=== PATIENT | female | born 1945 | race Caucasian/White ===

== ENCOUNTER 2017-01-23 14:08 | Outpatient (CLI) | payer MEDICARE, BC ==
--- NOTE | 2017-01-24 07:56 | MRI ---
MRI OF LUMBAR SPINE WITHOUT CONTRAST: Date: 01/23/17 INDICATION: Lumbar radicular pain. COMPARISON: None. FINDINGS: At L5-S1, there is advanced facet joint degenerative change. There is a broad based disc bulge. Ther e is mild bilateral neural foraminal narrowing. At L4-5, there is Grade I anterolisthesis. There is advanced facet joint degenerative change and bro ad based disc bulge inducing mild bilateral neural foraminal narrowing. At L3-4, there is a broad based bulge with facet joint degenerative change without appreciable centr al canal or neural foraminal narrowing. At L2-3, there is facet joint degenerative change and broad based bulge with mild bilateral neural f oraminal narrowing. At L1-2, there is a broad based bulge with facet joint degenerative change inducing mild bilateral n eural foraminal narrowing, right greater than left. At T12-L1, there is a broad based bulge with facet joint degenerative change inducing mild left neur al foraminal narrowing. Visualized retroperitoneum and paravertebral soft tissues appear within normal limits. IMPRESSION: Spondylosis of the lumbar spine, most advanced at L4-5 and L5-S1. POS: [facility]
== END 2017-01-23 14:09 | disposition home or self-care (01) ==
LOC: BURMRI 14:08
PROVIDERS: ATTEND Nurse Practitioner Family
DX: M54.16 Radiculopathy, lumbar region (principal); M47.817 Spondylosis without myelopathy or radiculopathy, lumbosacral region
CPT/HCPCS: 72148

== ENCOUNTER 2019-09-08 16:48 | Emergency (ER) | payer MEDICARE, MEDICAID ==
[2019-09-08 17:08] LABS: Bilirubin Small (Negative); Blood, Urine Large (Negative); Clarity Cloudy (Clear); Glucose, Urine (Dipstick) Negative (Negative); Leukocyte Moderate (Negative); Nitrite Negative (Negative); Protein, Urine (Dipstick) 100 mg/dL (Neg-Trace); Urobilinogen 0.2 mg/dL (Less than 2)
[2019-09-08 17:11] LABS: Bacteria/HPF 2+ HPF (None Seen); Oval Fat Bodies/HPF None Seen HPF (None Seen); RBC/HPF Greater than 50 HPF (0-3); Renal Epithelial None Seen HPF (None Seen); Sperm/HPF None Seen HPF (None Seen); Squamous Epithelial 0-3 HPF (0-3); Transitional Epithelial None Seen HPF (None Seen); Trichomonas/HPF None Seen HPF (None Seen); WBC/HPF Greater Than 50 HPF (0-3); Yeast-Budding None Seen HPF (None Seen); Yeast-Hyphae None Seen HPF (None Seen)
[2019-09-08 17:12] LABS: Broad Cast None Seen LPF (None Seen); Calcium Oxalate Crystals None Seen HPF (None Seen); Cellular Cast None Seen LPF (None Seen); Epithelial Cast None Seen LPF (None Seen); Fatty Cast None Seen LPF (None Seen); Mucous/LPF 1+ LPF (<2+); Other Casts None Seen LPF (None Seen); Red Blood Cell Cast None Seen LPF (None Seen); Triple Phosphate Crystal None Seen HPF (None Seen); Unclassified Crystals None Seen HPF (None Seen); Waxy Cast None Seen LPF (None Seen); White Blood Cell Cast None Seen LPF (None Seen)
[2019-09-08 17:39] LABS: #Basophils 0.1 thou/uL (0.0-0.2); #Monocytes 0.5 thou/uL (0.11-0.59); #Neutrophils 1.5 thou/uL (1.40-6.50); %Basophils 2.6 % (0.0-1.0); %Eosinophils 0.8 % (0.0-10.0); %Lymphocytes 32.4 % (21.0-51.0); %Monocytes 14.7 % (0.0-10.0); %Neutrophils 49.5 % (42.0-75.0); Hemoglobin 10.9 g/dL (12.0-16.0); Large Platelets SLIGHT; MDiff Complete? YES; Macrocytosis SLIGHT = 6-15 cells (100X) (0-5/hpf); Mean Corpuscular HGB CONC 31.4 g/dL (32.0-36.0); Mean Corpuscular Hemoglobin 34.5 pg (27.0-31.0); Mean Platelet Volume 9.1 fL (7.4-10.4); Platelet Count 117 thou/uL (130-400); RBC Distribution Width 14.5 % (11.5-14.5); Red Blood Cell (RBC) Count 3.16 mill/uL (4.20-5.40)
[2019-09-08] MEDS ORDERED: cefTRIAXone\\ROCEPHIN 1 GM VIAL ONE (17:45)
[2019-09-08] MEDS ORDERED: Lidocaine 1% PF 5 ML VIAL ONE (17:45)
== END 2019-09-08 17:54 | disposition home or self-care (01) ==
LOC: BURERS 16:48
DX: N39.0 Urinary tract infection, site not specified (principal); I10 Essential (primary) hypertension; Z79.899 Other long term (current) drug therapy
CPT/HCPCS: 81003; 81015; 85025; 87077; 87086; 87186; 96372; 99283; J0696; J2001

== ENCOUNTER 2020-04-25 14:35 | Emergency (ER) | payer MEDICARE, MEDICAID ==
[2020-04-25 15:33] LABS: Hemoglobin 9.6 g/dL (12.0-16.0); Mean Corpuscular HGB CONC 31.5 g/dL (32.0-36.0); Mean Corpuscular Hemoglobin 31.7 pg (27.0-31.0); Mean Platelet Volume 10.3 fL (7.4-10.4); Platelet Count 92 thou/uL (130-400); RBC Distribution Width 15.2 % (11.5-14.5); Red Blood Cell (RBC) Count 3.04 mill/uL (4.20-5.40); White Blood Cell (WBC) Count 2.2 thou/uL (4.8-10.8)
[2020-04-25 15:47] LABS: ALT (SGPT) 18 U/L (8-55); AST (SGOT) 27 U/L (5-34); Albumin 3.5 g/dL (3.4-4.8); Alkaline Phosphatase 62 U/L (40-110); Anion Gap 14 mmol/L (10-20); BUN (Urea Nitrogen) 11 mg/dL (9.8-20.1); Bilirubin, Total 0.5 mg/dL (0.2-1.2); Calc. Creatinine Clearance 0 mL/min (70-130); Calcium 8.2 mg/dL (7.8-10.44); Carbon Dioxide 26 mmol/L (23-31); Chloride 105 mmol/L (98-107); Estimated GFR-MDRD 65; Globulin 2.8 g/dL (2.4-3.5); Glucose 96 mg/dL (83-110); Protein, Total 6.3 g/dL (6.0-8.3); Sodium 142 mmol/L (136-145)
[2020-04-25 15:53] LABS: Band 13 % (5-11); Eosinophils 1 % (0-10); Large Platelets SLIGHT; Lymphocytes 34 % (21-51); MDiff Complete? YES; Monocytes 28 % (0-10); Neutrophil 23 % (42-75)
[2020-04-25 15:55] LABS: Potassium 2.6 mmol/L (3.5-5.1)
[2020-04-25] MEDS ORDERED: Potassium Chloride 20 MEQ TAB ONE (15:59)
--- NOTE | 2020-04-25 23:12 | CT ---
CT ABDOMEN AND PELVIS 04/25/[address] was done for evaluation of abdominal pain and possible constipation. Axial slices were acquired followed by coronal and sagittal reconstructions. The right lung base is clear. There are areas of scarring and pleural thickening in the left lung bas e. A moderate sized hiatal hernia is present. The liver contains several areas of calcification in it. Given the clinical history, the possibility of metastatic lesions is raised. The gallbladder is generous in size but contains no gallstones. The kidneys and pancreas showed no acute change. The aorta was normal in caliber. Neither adrenal gland w as enlarged. The aorta is normal in caliber. Regarding the bowel, there was no distention of bowel or excess of fecal material present. No free ai r or free fluid was seen. No wall thickening was noted. CT of the pelvis shows no pelvic masses, or large fluid collections. There may be either a small laura unt of fluid or scarring deep in the pelvis around the rectovesical pouch. Degenerative changes are p resent in the spine. There is a small rounded calcific density protruding into the right neural jolene en of L4. This may be a synovial cyst with calcification. A metastatic deposit seems less likely. IMPRESSION: No acute findings to explain the patient's bowel symptoms. Other findings as listed above. Preliminary report called to Dr. Camarillo at [id number] on 04/25/20. POS: HOME
== END 2020-04-25 16:12 | disposition home or self-care (01) ==
LOC: BURERS 14:37
DX: K59.00 Constipation, unspecified (principal); D64.9 Anemia, unspecified; E87.6 Hypokalemia; D72.819 Decreased white blood cell count, unspecified; I10 Essential (primary) hypertension; Z85.05 Personal history of malignant neoplasm of liver
CPT/HCPCS: 74176; 80053; 85025

== ENCOUNTER 2022-10-31 09:48 | Emergency (ER) | payer MEDICARE, MEDICAID ==
[2022-10-31] MEDS ORDERED: Ondansetron PF 4 MG/2 ML Vial ONE (10:18)
[2022-10-31 10:28] LABS: Hemoglobin 10.6 g/dL (12.0-16.0); Mean Corpuscular HGB CONC 33.7 g/dL (32.0-36.0); Mean Corpuscular Hemoglobin 35.2 pg (27.0-31.0); Mean Platelet Volume 10.2 fL (7.4-10.4); Platelet Count 88 10x3/uL (130-400); RBC Distribution Width 15.1 % (11.5-14.5); Red Blood Cell (RBC) Count 3.01 mill/uL (4.20-5.40); White Blood Cell (WBC) Count 2.1 10x3/uL (4.8-10.8)
[2022-10-31 10:31] LABS: ALT (SGPT) 28 U/L (8-55); AST (SGOT) 53 U/L (5-34); Albumin 4.2 g/dL (3.4-4.8); Alkaline Phosphatase 100 U/L (40-110); Anion Gap 16 mmol/L (10-20); BUN (Urea Nitrogen) 35 mg/dL (9.8-20.1); Bilirubin, Total 0.9 mg/dL (0.2-1.2); Calc. Creatinine Clearance 0 mL/min (70-130); Calcium 9.3 mg/dL (7.8-10.44); Carbon Dioxide 23 mmol/L (23-31); Chloride 103 mmol/L (98-107); Estimated GFR 47; Globulin 3.3 g/dL (2.4-3.5); Glucose 108 mg/dL (83-110); Potassium 3.9 mmol/L (3.5-5.1); Protein, Total 7.5 g/dL (5.8-8.1); Sodium 138 mmol/L (136-145)
[2022-10-31 10:45] LABS: Eosinophils 2 % (0-10); Lymphocytes 67 % (21-51); MDiff Complete? YES; Macrocytosis SLIGHT = 6-15 cells (100X) (0-5/hpf); Monocytes 13 % (0-10); Neutrophil 18 % (42-75); Platelet Morphology Comment Appears Decreased
== END 2022-10-31 11:49 | disposition home or self-care (01) ==
LOC: BURERS 09:48
DX: R11.2 Nausea with vomiting, unspecified (principal); R10.816 Epigastric abdominal tenderness; I10 Essential (primary) hypertension
CPT/HCPCS: 80053; 83735; 85025; 96361; 96374; J2405